=== PATIENT | female | born 1985 | race Caucasian/White ===

== ENCOUNTER → 2021-01-06 09:50 | Outpatient (CLI) | payer OTHER, SELFPAY ==
--- NOTE | ~2021-01-06 | US_ITS ---
US axilla RT DATE: 01/06/2021 10:04 INDICATION: Right axillary adenopathy TECHNIQUE: Real-time imaging of right axillary soft tissues COMPARISON: None . FINDINGS: There are multiple right axillary lymph nodes with uniform thickness and echogenicity of th e cortex suggesting benign pathology. These measure up to 4.9 x 15.5 mm. IMPRESSION: Benign-appearing lymph nodes Reviewed, dictated and finalized at [facility]. Reviewed, dictated and finalized at [facility].
== END ==
PROVIDERS: PCP Internal Medicine; Visit Provider Internal Medicine
DX: R59.0 Localized enlarged lymph nodes (principal)
CPT/HCPCS: 76882

== ENCOUNTER 2025-01-24 11:55 | Outpatient (CLI) | payer OTHER, SELFPAY ==
--- OUTSIDE RECORDS SUMMARY | 2025-01-24 14:03 | XMS_ITS | Referral Summary ---
Author Organization [facility] Address [address] [place] [id number] Care Team Providers Care Funnel Setter Name Role Phone Sally Leone MD Primary Care Provider [phone]- [phone] Allergies No known active allergies Medications levothyroxine (SYNTHROID) 25 mcg tablet Take 1 tablet (25 mcg total) by mouth daily 02/08/2023 Active benzonatate (TESSALON) 100 mg capsuleIndicati ons:Cough Take 1 capsule (100 mg total) by mouth 3 (three) times a day as needed for cough 42 capsule 06/06/2024 Active Active Problems No known active problems Social History Tobacco Use Types Packs/Day Years Used Date Smoking Tobacco: Never Assessed Personal Safety Answer Date Recorded Getting School Help Needed Not on file 06/06 Comments Unknown Sex and Gender Information Value Date Recorded Sex Assigned at Not on file Legal Sex Female 12:18 PM CDT Gender Identity Not on file Sexual Orientation Not on file Last Filed Vital Signs Vital Sign Reading Time Taken Comments Blood Pressure 122/82 06/06/2024 8:34 AM CDT Pulse 103 06/06/2024 8:34 AM CDT Temperature 37.3 C (99.2 F) 06/06/2024 8:34 AM CDT Respiratory Rate 20 06/06/2024 8:34 AM CDT Oxygen Saturation 98% 06/06/2024 8:34 AM CDT Inhaled Oxygen Concentration - - Weight - - Height - - Body Mass Index - - Plan of Treatment Not on file Insurance [facility] [employer] Care Teams Funnel Setter Relationship Specialty Start Date End Date Sally Leone MD PCP - General Internal Medicine 06/06/24
--- OUTSIDE RECORDS SUMMARY | 2025-01-24 14:03 | XMS_ITS | Clinical Summary ---
Author Organization [facility] Address [address] [place] [id number] Care Team Providers Care Gas Line Servicer Name Role Phone Sally Leone MD Primary Care Provider [phone]- [phone] Allergies No known active allergies Medications levothyroxine [...] Mass Index - - Plan of Treatment Health Maintenance Due Date Last Done Comments Breast Cancer Screening-Mammogram 1984 Cervical Cancer Screening 1984 Depression Screening 1984 Hepatitis C Screening 1984 DTaP/Tdap/Td Vaccine (1 - Tdap) 02/17/1995 Varicella Vaccines (1 of 2 - 13+ 2-dose series) 02/17/1997 Hepatitis B Screening 02/17/2002 Regular Well Visit/Exam 18-64 02/17/2002 Influenza Vaccine (Season Ended) 2025 HPV Vaccines Aged Out No longer eligi ble based on patient's age to complete this topic Pneumococcal vaccine <65 Aged Out No longer eligible based on patient's age to complete this topic Insurance [facility] C[employer] Care Teams Gas Line Servicer Relationship Specialty Start Date End Date Sally Leone MD PCP - General Internal Medicine 06/06/24
--- OUTSIDE RECORDS SUMMARY | 2025-01-24 14:03 | XMS_ITS | Clinical Summary ---
Author Organization [facility] Address [address] Attn: Epic Prelude ADT [place]ASH [id number] Care Team Providers Care Tail Ripper Name Role Phone Unavailable Primary Care Provider Unavailabl e Allergies No known active allergies Medications oxyCODONE-aceta minophen (PERCOCET) 5-325 mg tablet Take 1 Tablet by mouth every 4 hours as needed for pain. Max Daily Amount: 6 Tablets 40 Tablet 06/01/2022 6:12 PM CDT 2 Active diazePAM (VALIUM) 5 mg tablet Take 1 Tablet (5 mg) by mouth 3 times daily as needed for muscle spasms. 15 Tablet 06/01/2022 6:12 PM CDT 2 Active mupirocin (BACTROBAN) 2 % Ointment Apply to the inside nares at bedtime starting 5 days prior to surgery. 22 Gram 06/01/2022 6:12 PM CDT 2 Active ondansetron (ZOFRAN ODT) 8 mg Tablet, Rapid Dissolve Dissolve 1 tablet under the tongue every 6-8 hours as needed for nausea. 8 Tablet 06/01/2022 6:12 PM CDT 2 Active traMADoL (ULTRAM) 50 mg tablet Take 1 tablet by mouth every 4-6 hours as needed for pain. 30 Tablet 06/27/2022 12:19 PM [facility]ALTH[facility]ARE [facility] 2 Active gabapentin (NEURONTIN) 300 mg capsule Take 1 Capsule (300 mg) by mouth 3 times daily. 21 Capsule 06/27/2022 12:19 PM HEALTHCARE [facility] MEDICAL 2 Active cefadroxil (DURICEF) 500 mg capsule Take 1 Capsule (500 mg) by mouth 2 times daily. 10 Capsule 07/01/2022 9:19 AM HEALTHCARE [facility] MEDICAL 2 Active levothyroxine 25 mcg tablet Take one and one-half tablets by mouth in the morning on an empty stomach. 135 Tablet 3 3 Active escitalopram oxalate (LEXAPRO) 20 mg tablet Take 1 Tablet (20 mg) by mouth daily. 90 Tablet 3 04/12/2024 4:32 PM CDT 4 Active vilazodone (VIIBRYD) 10 mg Tablet Take 1 Tablet (10 mg) by mouth daily for 1 week, then increase to 2 Tablets (20 mg) by mouth daily with food. 60 Tablet 2 04/21/2024 2:28 PM CDT 4 Active benzonatate (TESSALON) 100 mg capsule Take 1 Capsule (100 mg) by mouth 3 times daily as needed. 42 Capsule 06/06/2024 3:50 PM CDT 4 Active predniSONE (DELTASONE) 20 mg tablet Take 2 Tablets (40 mg) by mouth with breakfast for 5 days. 10 Tablet 4 Active levothyroxine 25 mcg tablet Take 1.5 tablets by mouth in the morning on an empty stomach. 135 Tablet 3 12/04/2024 9:14 AM CDT 4 Active levothyroxine 25 mcg tablet Take 1.5 tablets by mouth in the morning on an empty stomach. 135 Tablet 1 5 Active levothyroxine 25 mcg tablet Take 1.5 tablets by mouth in the morning on an empty stomach. 135 Tablet 2 5 Active levothyroxine 25 mcg tablet Take 1.5 tablets by mouth in the morning on an empty stomach. 135 Tablet 2 5 Active ALPRAZolam (XANAX) 0.25 mg tablet Take 1 Tablet (0.25 mg) by mouth 1 time daily as needed. 30 Tablet 10/18/2024 7:04 PM [facility]ALTHCARE [facility] MED[facility] 5 Active ALPRAZolam (XANAX) 0.25 mg tablet Take 1 tablet by mouth once a day as needed 30 Tablet 11/18/2024 3:51 PM CDT 5 Active ALPRAZolam (XANAX) 0.25 mg tablet Take 1 Tablet (0.25 mg) by mouth 1 time daily as needed. 30 Tablet 12/31/2024 11:59 AM CDT 5 Active FLUoxetine (PROzac) 10 mg capsule Take 1 Capsule (10 mg) by mouth daily. 30 Capsule 1 01/09/2025 12:51 PM CDT 5 Active busPIRone (BUSPAR) 5 mg tablet Take 1 Tablet (5 mg) by mouth 2 times daily. 60 Tablet 01/17/2025 7:35 PM CDT 5 Active busPIRone (BUSPAR) 7.5 mg Tablet Take 1 Tablet (7.5 mg) by mouth 2 times daily. 60 Tablet 5 04/12/2024 4:32 PM CDT 4 01/12/20 25 Discontinu ed(Dose/fo rm adjustment ) vortioxetine (TRINTELLIX) 10 mg tablet Take 1 Tablet (10 mg) by mouth daily. 90 Tablet 2 12/17/2024 3:27 PM CDT 5 01/10/20 25 Discontinu ed(Formula ry Change) Social History Tobacco Use Types Packs/Day Years Used Date Smoking Tobacco: Never Assessed Comments Unknown Sex and Gender Information Value Date Recorded Sex Assigned at Not on file Legal Sex Female 3:27 PM CDT Gender Identity Not on file Sexual Orientation Not on file Plan of Treatment Health Maintenance Due Date Last Done Comments DTAP/TDAP/TD VACCINES (1 - Tdap) 02/17/2003 HEPATITIS B VACCINES (1 of 3 - 19+ 3-dose series) 02/17/2003 HPV/Cotest (21-29) 02/17/2005 CERVICAL CANCER SCREENING 02/17/2014 HPV/Cotest (30-65) 02/17/2014 PAP SMEAR 02/17/2014 BREAST CANCER SCREENING 2024 INFLUENZA VACCINE (#1) 2024 HPV VACCINES Aged Out No longer eligi ble based on patient's age to complete this topic Insurance RX [facility] [employer] (INTERNAL) [facility] [employer] Subscriber Plan / Payer (Ef fective for All Dates) Name:Jovita Gonsalez Relation to Subscriber:Self Name:Jovita Gonsalez Payer ID:Not on file Type:RX Commercial Address: [employer]
[2025-01-26 22:53] LABS: 6-Acetylmorphine NEGATIVE ng/mL (<10); Alcohol Metabolites NEGATIVE ng/mL (<500); Amphetamines NEGATIVE ng/mL (<500); Barbiturates NEGATIVE ng/mL (<300); Benzodiazepines NEGATIVE ng/mL (<100); Cocaine Metabolite NEGATIVE ng/mL (<150); Marijuana Metabolite NEGATIVE ng/mL (<20); Methadone Metabolite NEGATIVE ng/mL (<100); Opiates NEGATIVE ng/mL (<100); Oxidant NEGATIVE mcg/mL (<200); pH 8.5 (4.5-9.0)
== END 2025-01-24 11:56 | disposition home or self-care (01) ==
LOC: ANHLAB 11:56
PROVIDERS: PCP Family Medicine; Visit Provider Family Medicine
DX: Z51.81 Encounter for therapeutic drug level monitoring (principal); Z79.899 Other long term (current) drug therapy
CPT/HCPCS: 36415; 80346; 80349; 80361; G0480

== ENCOUNTER 2025-02-21 11:19 | Outpatient (CLI) | payer OTHER, SELFPAY ==
--- NOTE | ~2025-02-21 | MM_ITS ---
EXAMINATION: MM scrn cassia implant BI w tavares HISTORY: Screening mammogram TECHNIQUE: Craniocaudal and mediolateral oblique 3-D tomosynthesis images with implant displacement a nd synthetic 2-D images were generated. Craniocaudal and mediolateral oblique views of the breasts wi thout implant displacement were obtained using full field digital mammography. CAD analysis was submi tted and interpreted. COMPARISON: No prior mammogram is available for comparison at this institution. BREAST PARENCHYMAL COMPOSITION: Dense: The breasts are extremely dense, which lowers the sensitivity of mammography. FINDINGS: There is no evidence of suspicious mass, calcification, or architectural distortion to sugg est malignancy in either breast. There has been no suspicious interval change. IMPRESSION: 1. No mammographic evidence of malignancy. 2. Recommend routine screening mammography in one year. BI-RADS Category 1: Negative Reviewed, dictated and finalized at location [facility].
== END 2025-02-21 11:20 | disposition home or self-care (01) ==
LOC: MICIMG 11:20
PROVIDERS: PCP Family Medicine; Visit Provider Obstetrics & Gynecology
DX: Z12.31 Encounter for screening mammogram for malignant neoplasm of breast (principal); Z98.82 Breast implant status
CPT/HCPCS: 77063; 77067